=== PATIENT | male | born 1995 | race Caucasian/White ===

== ENCOUNTER 2020-05-26 13:13 | Emergency (ER) | payer OTHER ==
[~2020-05-26] VITALS: Ht 193 cm; Wt 83.9 kg
[2020-05-26 13:51] VITALS: BP 129/76
[2020-05-26] MEDS ORDERED: IBUPROFEN 800 MG TAB PO ONE (15:45)
== END 2020-05-26 16:02 | disposition home or self-care (01) ==
LOC: ER 13:13
DX: S52.501A Unspecified fracture of the lower end of right radius, initial encounter for closed fracture (principal); X50.1XXA Overexertion from prolonged static or awkward postures, initial encounter; Y93.89 Activity, other specified; Y92.89 Other specified places as the place of occurrence of the external cause; Y99.8 Other external cause status
CPT/HCPCS: 29125; 73110